=== PATIENT | male | born 2000 | race Caucasian/White ===

== ENCOUNTER 2018-01-08 10:22 | Day surgery (SDC) | payer BC, MEDICAID ==
[2018-01-08] MEDS ORDERED: Sodium Chloride 0.9% 1,000 ML IV ONE (11:17)
[2018-01-08] MEDS ORDERED: Iopamidol 755 Mg/ML 100 ML Bottle IV ONE (11:27)
--- NOTE | 2018-01-08 11:27 | EDM.PDOC ---
ED HPI GENERAL MEDICAL PROBLEM - General Stated Complaint: STOMACH PAIN Time Seen by Provider: 01/08/18 10:22 Source of Information: Reports: Patient History Limitations: Reports: No Limitations - History of Present Illness INITIAL COMMENTS - FREE TEXT/NARRATIVE: 17 y.o.w.m came to he ed 20 hours after he noticed gen abd pain radiating down to his RLQ of his abdomen. Pt got so severe, make to decide to come to the ed. today. Pt had abd. pain a month ago which was different from the pain today. No trauma, no previous abd. surgeries.Last food intake yesterday noon, is not taking any meds. No N/V/D. Pt felt suddenly weak from pain and had a near syncope while walking from room 200 to 201. His BP was 130/67 pulse 80. No fall, no trauma. Pt recovered quickly after NS was given. No other acute medical issues. BP 136/74 pulse 84 Temp 36.8 RR 20 Pulse ox 96. Onset Date: 01/07/18 Onset Time: 14:00 Duration: Hour(s):, Getting Worse, Intermittent Location: Reports: Abdomen Quality: Reports: Ache, Dull, Pressure Severity: Moderate Improves with: Reports: Rest Worsens with: Reports: Movement Context: Reports: Other (distended abdomen, ) Associated Symptoms: Reports: Syncope (while walking from room 200 to 201( near syncope)) Lower Abdomen Pain Score (Numeric/FACES): 5 - Related Data Allergies Allergy/AdvReac Type Severity Reaction Status Date / Time No Known Allergies Allergy Verified 01/08/18 11:26 Home Meds: Home Meds NK [No Known Home Meds] 01/08/18 [History] ED ROS GENERAL - Review of Systems Review Of Systems: See Below Constitutional: Reports: Weakness, Decreased Appetite HEENT: Reports: No Symptoms Respiratory: Reports: No Symptoms Cardiovascular: Reports: No Symptoms Endocrine: Reports: No Symptoms GI/Abdominal: Reports: Abdominal Pain : Reports: No Symptoms Musculoskeletal: Reports: No Symptoms Skin: Reports: No Symptoms Neurological: Reports: No Symptoms Psychiatric: Reports: No Symptoms Hematologic/Lymphatic: Reports: No Symptoms Immunologic: Reports: No Symptoms ED EXAM, GI/ABD - Physical Exam Exam: See Below Exam Limited By: Other (abd. pain) General Appearance: Alert, WD/WN, Moderate Distress, Obese Eyes: Bilateral: Normal Appearance Ears: Normal External Exam Nose: Normal Inspection, Normal Mucosa Throat/Mouth: Normal Lips, Normal Gums, Normal Voice, No Airway Compromise, Other (dry mucosal membrane) Head: Atraumatic, Normocephalic Neck: Normal Inspection, Supple, Non-Tender, Full Range of Motion Respiratory/Chest: No Respiratory Distress, Lungs Clear, Normal Breath Sounds, No Accessory Muscle Use, Chest Non-Tender Cardiovascular: Normal Peripheral Pulses GI/Abdominal Exam: Guarding, Rigid, Rebound, Tender, Abnormal Bowel Sounds (Male) Exam: No Hernia Rectal (Males) Exam: Deferred Back Exam: Normal Inspection, Full Range of Motion Extremities: Normal Inspection, Normal Range of Motion, Non-Tender, No Pedal Edema, Normal Capillary Refill Neurological: Alert, Oriented, CN II-XII Intact, Normal Cognition, Normal Gait, Normal Reflexes, No Motor/Sensory Deficits Psychiatric: Normal Affect, Normal Mood Skin Exam: Warm, Dry, Pallor (after the near syncopy, pt recoved quickly after the NS was given wide open. ) Lymphatic: No Adenopathy EKG INTERPRETATION EKG Date: 01/08/18 Time: 11:35 Rhythm: NSR Rate (Beats/Min): 81 Coulter: Normal P-Wave: Present QRS: Normal ST-T: Normal QT: Normal Comparison: NA - No Prior EKG Course - Vital Signs Text/Narrative:: 17 y.o.w.m came to he ed 20 hours after he noticed gen abd pain radiating down to his RLQ of his abdomen. Pt got so severe, make to decide to come to the ed. today. Pt had abd. pain a month ago which was different from the pain today. No trauma, no previous abd. surgeries.Last food intake yesterday noon, is not taking any meds. No N/V/D. Pt felt suddenly weak from pain and had a near syncope while walking from room 200 to 201. His BP was 130/67 pulse 80. No fall, no trauma. Pt recovered quickly after NS was given. No other acute medical issues. BP 136/74 pulse 84 Temp 36.8 RR 20 Pulse ox 96. PE: 17 y.o. obese w m with acute abd pain and near syncope due to pain ( vasovagal) Imaging: CT abd/pelvis: Early acute appy as per RAD Labs: WBC 16.1 Neutrophils 84% BMP Nl EKG: NSR Impression: early acute appendicitis, abd pain, obesity, S/P near syncope ( vasovagal) Tx: Zosyn, NS. 1.30 pm Consultation: Dr. Bauman, Surgeon: Heidi galloway planned for 4.30 pm today Plan: Appendectomy, Pt and mom were informed about the Tx plan. Last Recorded V/S: Last Vital Signs Temp 36.6 C 01/09/18 04:30 Pulse 66 01/09/18 08:20 Resp 18 01/09/18 08:20 BP 134/68 01/09/18 08:20 Pulse Ox 96 01/09/18 08:20 - Orders/Labs/Meds Orders: Active Orders 24 hr Category Date Time Status Patient Status [ADT] Routine ADT 01/08/18 13:36 Active IS (RT) [RT Incentive Spirometry] [RC] Q2HWA Care 01/08/18 19:09 Active Ready for Discharge [RC] PER UNIT ROUTINE Care 01/09/18 08:54 Active Clear Liquid Diet [DIET] Diet 01/08/18 Dinner Ordered Acetaminophen/HYDROcodone [Sutherlin 325-5 MG] Med 01/08/18 19:09 Active 2 tab PO Q4H PRN Ketorolac [Toradol] Med 01/08/18 17:30 Active 30 mg IVPUSH Q6H Lactated Ringers [Ringers, Lactated] 1,000 ml Med 01/08/18 13:45 Active IV ASDIRECTED Morphine Med 01/08/18 19:09 Active 2 mg IVPUSH Q3H PRN Peripheral IV Insertion Adult [OM.PC] Routine Oth 01/08/18 13:36 Ordered SCD [Sequential Compression Device] [OM.PC] Routine Oth 01/08/18 13:37 Ordered Resuscitation Status Routine Resus Stat 01/08/18 13:36 Ordered EKG 12 Lead [EK] Routine Ther 01/08/18 11:22 Stop Req Medication Orders Hydrocodone Bitart/Acetaminophen ([place]lin 325-5 Mg) 2 tab PO Q4H PRN PRN Reason: Pain Lactated Ringer's (Ringers, Lactated) 1,000 mls @ 125 mls/hr IV ASDIRECTED RAMÍREZ Last Admin: 01/09/18 03:27 Dose: 125 mls/hr Infusion: 01/09/18 03:22 Dose: 125 mls/hr Admin: 01/08/18 19:22 Dose: 125 mls/hr Ketorolac Tromethamine (Toradol) 30 mg IVPUSH Q6H RAMÍREZ Stop: 01/13/18 17:23 Last Admin: 01/09/18 06:15 Dose: 30 mg Admin: 01/09/18 00:24 Dose: 30 mg Admin: 01/08/18 18:29 Dose: 30 mg Morphine Sulfate (Morphine) 2 mg IVPUSH Q3H PRN PRN Reason: Pain Labs: Laboratory Tests 01/08/18 01/08/18 01/08/18 Range/Units 11:27 11:27 11:27 WBC 15.6 H (4.5-12.0) X10-3/uL RBC 5.44 (4.30-5.75) x10(6)uL Hgb 15.2 (11.5-15.5) g/dL Hct 45.3 (30.0-51.3) % MCV 83.3 (80-96) fL MCH 27.9 (27.7-33.6) pg MCHC 33.5 (32.2-35.4) g/dL RDW 12.9 (11.5-15.5) % Plt Count 278 (125-369) X10(3)uL MPV 8.2 (7.4-10.4) fL Neut % (Auto) (46-82) % Lymph % (Auto) (13-37) % [place] % (Auto) (4-12) % Eos % (Auto) (1.0-5.0) % Baso % (Auto) (0-2) % Neut # (Auto) (1.6-8.3) # Lymph # (Auto) (0.6-5.0) # [place] # (Auto) (0.0-1.3) # Eos # (Auto) (0.0-0.8) # Baso # (Auto) (0.0-0.2) # Add Manual Diff Yes Neutrophils % (Manual) 83 H (46-82) % Lymphocytes % (Manual) 9 L (13-37) % Monocytes % (Manual) 7 (4-12) % Eosinophils % (Manual) 1 (0-5) % PT 10.1 (8.7-11.1) INR 1.00 (0.89-1.13) Sodium 140 (135-145) mmol/L Potassium 3.9 (3.5-5.3) mmol/L Chloride 102 (100-110) mmol/L Carbon Dioxide 28 (21-32) mmol/L BUN 8 (7-18) mg/dL Creatinine 0.8 (0.70-1.30) mg/dL Est Cr Clr Drug Dosing TNP Estimated GFR (MDRD) > 60 (>60) BUN/Creatinine Ratio 10.0 (9-20) Glucose 115 (80-116) mg/dL Calcium 8.9 (8.2-10.1) mg/dL Total Bilirubin 0.8 (0.1-1.2) mg/dL Direct Bilirubin 0.14 (0.10-0.20) mg/dL AST 18 (5-25) IU/L ALT 44 H (12-36) U/L Alkaline Phosphatase 157 H (56-112) IU/L Total Protein 7.6 (6.0-8.0) g/dL Albumin 4.0 (3.2-4.5) g/dL Amylase 44 (25-115) U/L Urine Color (YELLOW) Urine Appearance (CLEAR) Urine pH (5.0-6.5) Ur Specific [place] (1.010-1.025) Urine Protein (NEGATIVE) mg/dL Urine Glucose (UA) (NEGATIVE) mg/dL Urine Ketones (NEGATIVE) mg/dL Urine Occult Blood (NEGATIVE) Urine Nitrite (NEGATIVE) Urine Bilirubin (NEGATIVE) Urine Urobilinogen (NEGATIVE) mg/dL Ur Leukocyte Esterase (NEGATIVE) Urine WBC (0) Ur Squamous Epith Cells (NS,R,O) Urine Bacteria (NS) Urine Opiates Screen (NEGATIVE) Ur Oxycodone Screen (NEGATIVE) Ur Propoxyphene Screen (NEGATIVE) Ur Barbituates Screen (NEGATIVE) Ur Tricyclics Screen (NEGATIVE) Ur Phencyclidine Scrn (NEGATIVE) Ur Amphetamine Screen (NEGATIVE) Urine MDMA Screen (NEGATIVE) U Benzodiazepines Scrn (NEGATIVE) U Cocaine Metab Screen (NEGATIVE) U Marijuana (THC) Screen (NEGATIVE) 01/08/18 01/08/18 01/09/18 Range/Units 12:05 12:05 06:40 WBC 11.0 (4.5-12.0) X10-3/uL RBC 4.62 (4.30-5.75) x10(6)uL Hgb 13.0 (11.5-15.5) g/dL Hct 38.4 (30.0-51.3) % MCV 83.3 (80-96) fL MCH 28.1 (27.7-33.6) pg MCHC 33.7 (32.2-35.4) g/dL RDW 12.6 (11.5-15.5) % Plt Count 241 (125-369) X10(3)uL MPV 8.0 (7.4-10.4) fL Neut % (Auto) 66.0 (46-82) % Lymph % (Auto) 22.6 (13-37) % [place] % (Auto) 9.4 (4-12) % Eos % (Auto) 2 (1.0-5.0) % Baso % (Auto) 1 (0-2) % Neut # (Auto) 7.2 (1.6-8.3) # Lymph # (Auto) 2.5 (0.6-5.0) # [place] # (Auto) 1.0 (0.0-1.3) # Eos # (Auto) 0.2 (0.0-0.8) # Baso # (Auto) 0.1 (0.0-0.2) # Add Manual Diff Neutrophils % (Manual) (46-82) % Lymphocytes % (Manual) (13-37) % Monocytes % (Manual) (4-12) % Eosinophils % (Manual) (0-5) % PT (8.7-11.1) INR (0.89-1.13) Sodium (135-145) mmol/L Potassium (3.5-5.3) mmol/L Chloride (100-110) mmol/L Carbon Dioxide (21-32) mmol/L BUN (7-18) mg/dL Creatinine (0.70-1.30) mg/dL Est Cr Clr Drug Dosing Estimated GFR (MDRD) (>60) BUN/Creatinine Ratio (9-20) Glucose (80-116) mg/dL Calcium (8.2-10.1) mg/dL Total Bilirubin (0.1-1.2) mg/dL Direct Bilirubin (0.10-0.20) mg/dL AST (5-25) IU/L ALT (12-36) U/L Alkaline Phosphatase (56-112) IU/L Total Protein (6.0-8.0) g/dL Albumin (3.2-4.5) g/dL Amylase (25-115) U/L Urine Color Yellow (YELLOW) Urine Appearance Clear (CLEAR) Urine pH 7.0 H (5.0-6.5) Ur Specific [place] 1.010 (1.010-1.025) Urine Protein Negative (NEGATIVE) mg/dL Urine Glucose (UA) Normal (NEGATIVE) mg/dL Urine Ketones Negative (NEGATIVE) mg/dL Urine Occult Blood Negative (NEGATIVE) Urine Nitrite Negative (NEGATIVE) Urine Bilirubin Negative (NEGATIVE) Urine Urobilinogen Normal (NEGATIVE) mg/dL Ur Leukocyte Esterase Negative (NEGATIVE) Urine WBC 0-5 (0) Ur Squamous Epith Cells Few H (NS,R,O) Urine Bacteria Few H (NS) Urine Opiates Screen Negative (NEGATIVE) Ur Oxycodone Screen Negative (NEGATIVE) Ur Propoxyphene Screen Negative (NEGATIVE) Ur Barbituates Screen Negative (NEGATIVE) Ur Tricyclics Screen Negative (NEGATIVE) Ur Phencyclidine Scrn Negative (NEGATIVE) Ur Amphetamine Screen Negative (NEGATIVE) Urine MDMA Screen Negative (NEGATIVE) U Benzodiazepines Scrn Negative (NEGATIVE) U Cocaine Metab Screen Negative (NEGATIVE) U Marijuana (THC) Screen Negative (NEGATIVE) Meds: Medications Generic Name Dose Route Start Last Admin Trade Name Freq PRN Reason Stop Dose Admin Hydrocodone Bitart/Acetaminophen 2 tab 01/08/18 19:09 [place]utherlin 325-5 Mg PO Q4H PRN Pain Lactated Ringer's 1,000 mls @ 125 mls/hr 01/08/18 13:45 01/09/18 03:27 Ringers, Lactated IV 125 mls/hr ASDIRECTED RAMÍREZ Administration Ketorolac Tromethamine 30 mg 01/08/18 17:30 01/09/18 06:15 Toradol IVPUSH 01/13/18 17:23 30 mg Q6H RAMÍREZ Administration Morphine Sulfate 2 mg 01/08/18 19:09 Morphine IVPUSH Q3H PRN Pain Discontinued Medications Generic Name Dose Route Start Last Admin Trade Name Freq PRN Reason Stop Dose Admin Bupivacaine HCl 6 ml 01/08/18 16:53 01/08/18 16:53 Marcaine 0.5% INJECT 01/08/18 16:54 6 ml .STK-MED ONE Administration Diatrizoate Meglum/Diatrizoate Sod 30 ml 01/08/18 11:30 01/08/18 13:13 Gastrografin 37% PO 30 ml . DIRECTED RAMÍREZ Administration Sodium Chloride 1,000 mls @ 999 mls/hr 01/08/18 11:17 01/08/18 11:30 Normal Saline IV 01/08/18 12:17 999 mls/hr .BOLUS ONE Administration Piperacillin Sod/Tazobactam 50 mls @ 100 mls/hr 01/08/18 12:30 01/08/18 18:44 Sod 3.375 gm/ Sodium Chloride IV 100 mls/hr Q6H RAMÍREZ Administration Sodium Chloride 1,000 mls @ 125 mls/hr 01/08/18 12:30 01/08/18 12:30 Normal Saline IV 01/08/18 16:25 125 mls/hr ASDIRECTED RAMÍREZ Administration Iopamidol 100 ml 01/08/18 11:27 01/08/18 13:13 Isovue-370 (76%) IV 01/08/18 11:28 93 ml . DIRECTED ONE Administration Lidocaine/Epinephrine 6 ml 01/08/18 16:53 01/08/18 16:53 Xylocaine 1% With Epinephrine 1:100,000 INJECT 01/08/18 16:54 6 ml .STK-MED ONE Administration Sodium Chloride 10 ml 01/08/18 13:36 Saline Flush FLUSH ASDIRECTED PRN Keep Vein Open Departure - Departure Time of Disposition: 16:00 Disposition: Admitted As Inpatient 64 Condition: Fair Clinical Impression: Acute appendicitis Qualifiers: Acute appendicitis type: with localized peritonitis Qualified Code(s): K35.3 - Acute appendicitis with localized peritonitis - Discharge Information - My Orders Last 24 Hours: My Active Orders 01/08/18 11:22 EKG 12 Lead [EK] Routine - Assessment/Plan Last 24 Hours: My Active Orders 01/08/18 11:22 EKG 12 Lead [EK] Routine
[2018-01-08] MEDS ORDERED: Diatrizoate Meglumine/Diatrizoate Sodium 37% 30 ML Bottle PO SCH (11:30)
[2018-01-08] MEDS ORDERED: Sodium Chloride 0.9% 1,000 ML IV SCH (12:30)
[2018-01-08] MEDS: Piperacillin/Tazobactam 3.375 GM in Sodium Chloride 0.9% 50 ML IV SCH ×2 (12:45→18:44)
[2018-01-08] MEDS ORDERED: Sodium Chloride 0.9% 10 ML Syringe FLUSH PRN (13:36)
--- NOTE | 2018-01-08 14:46 | CT ---
INDICATION: Right lower quadrant and periumbilical pain, distended. CT ABDOMEN AND PELVIS WITH CONTRAST: Spiral 2.5-mm axial sections were obtained through the abdomen and pelvis with oral and IV contrast (93 mL Isovue- 370 at 2.3 mL per second), with sagittal and coronal reconstructions, 2017 - no comparisons. Total Exam DLP = 1316.45 mGy-cm. The lower lung warner and pleural spaces visualized appeared normal. The heart is not enlarged. There is a mild degree of appendiceal prominence with an appendicolith and some minimal periappendiceal fat stranding and increased fat density suggesting very minimal localized peritonitis with appendicitis. A loop of distal ileum has a thickened wall of questionable significance, but could be related to a process such as Crohn's disease. No evidence of an obstructive process of the bowel or free air or herniation was identified. The urinary bladder was unremarkable. Kidneys, adrenal glands, pancreas, spleen , liver, and gallbladder were unremarkable. IMPRESSION: 1. Findings are compatible with a mild or early appendicitis, with limited peritonitis adjacent to the appendix. An appendicolith is present. 2. Thickened wall of a loop of distal ileum of questionable significance could be related to Crohn's disease. 3. CT abdomen and pelvis with IV and oral contrast otherwise unremarkable. Report was called to Dr. Martinez at 1330 hours, 01/08/2018. [facility]
[2018-01-08] MEDS ORDERED: Succinylcholine 200 MG/10 ML MDV IV ONE (16:35)
[2018-01-08] MEDS ORDERED: Ondansetron 4 MG/2 ML SDV IVPUSH ONE (16:35)
[2018-01-08] MEDS ORDERED: fentaNYL 100 MCG/2 ML SDV IV ONE (16:35)
[2018-01-08] MEDS ORDERED: Midazolam 1 MG/ML 2 ML SDV IV ONE (16:35)
[2018-01-08] MEDS ORDERED: Sugammadex Sodium 200 MG/2 ML VIAL IV ONE (16:35)
[2018-01-08] MEDS ORDERED: Ketorolac 30 MG/ML SDV IVPUSH ONE (16:35)
[2018-01-08] MEDS ORDERED: Rocuronium 100 MG/10 ML MDV IV ONE (16:35)
[2018-01-08] MEDS ORDERED: Propofol 200 MG/20 ML SDV IV ONE (16:35)
[2018-01-08] MEDS ORDERED: Lactated Ringers 1,000 ML IV ONE (16:35)
[2018-01-08] MEDS ORDERED: Lidocaine 1% with EPINEPHrine 1:100,000 20 ML MDV INJECT ONE (16:53)
[2018-01-08] MEDS ORDERED: Bupivacaine 0.5% 30 ML SDV INJECT ONE (16:53)
--- NOTE | 2018-01-08 17:20 | PCM.OPNOTE ---
- General Post-Op/Procedure Note Date of Surgery/Procedure: 01/08/18 Operative Procedure(s): lap appendectomy Findings: inflamed appendix Pre Op Diagnosis: acute appendictis Post-Op Diagnosis: Same Anesthesia Technique: MAC Primary Surgeon: Nikolas Bauman Anesthesia Provider: Elle Tobin Pathology: appendix EBL in mLs: 1 Complications: None Condition: Good Free Text/Narrative:: Intake & Output 01/08/18 01/08/18 01/08/18 06:59 14:59 22:59 Intake Total 480 Balance 480 see dictation
[2018-01-08] MEDS: Ketorolac 30 MG/ML SDV IVPUSH SCH (18:29)
--- NOTE | 2018-01-08 19:02 | PREOP ---
ADMISSION DATE: 01/08/2018 CHIEF COMPLAINT: Abdominal pain. HISTORY OF PRESENT ILLNESS: This is a 17-year-old white male, who apparently developed some abdominal pain yesterday in his periumbilical and subsequently located to the right lower quadrant. It is exacerbated by motion and bending over. He has plus-minus on the anorexia. Denies any fever. Subsequent workup demonstrated leukocytosis as well as evidence of appendicitis on CT scan. 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 Does not smoke. Does not drink. MEDICATIONS: He is currently on no medication. ALLERGIES: Denies any known drug allergies. FAMILY HISTORY: Significant for heart disease. PAST MEDICAL HISTORY: Negative. PAST SURGICAL HISTORY: Negative. REVIEW OF SYSTEMS: GENERAL: Negative. EYES, EARS, NOSE, AND THROAT: Negative. PULMONARY: Negative. CARDIAC: Negative. ABDOMEN: See HPI. : Denies any issues. MUSCULOSKELETAL: Denies any musculoskeletal issues. NEUROLOGIC: Denies any neurologic issues. SKIN: Denies any skin issues. PHYSICAL EXAMINATION: GENERAL: This is a well-developed and well-nourished white male, appearing in no acute distress. HEENT: Grossly within normal limits. LUNGS: Clear to auscultation. HEART: Had a regular rate and rhythm. ABDOMEN: Soft. He has some tenderness in the right lower quadrant and some mild rebound. LABORATORY DATA: Reviewed and demonstrates leukocytosis. ASSESSMENT: Acute appendicitis. PLAN: Laparoscopic appendectomy. Procedure and risks explained to the patient to include bleeding, infection, perforation, removal of a normal appendix as well as converting to open. The patient expresses understanding and he asked us to proceed. /[id number] /MODL
[2018-01-08] MEDS ORDERED: Acetaminophen/HYDROcodone 325-5 MG Tab PO PRN (19:09)
[2018-01-08] MEDS ORDERED: Morphine 2 MG/ML Syringe IVPUSH PRN (19:09)
[2018-01-08] MEDS: Lactated Ringers 1,000 ML IV SCH (19:22)
--- NOTE | 2018-01-09 00:20 | OR ---
DATE OF OPERATION: 01/08/2018 SURGEON: Nikolas Bauman MD PROCEDURE PERFORMED: Laparoscopic appendectomy. PREOPERATIVE DIAGNOSIS: Acute appendicitis. POSTOPERATIVE DIAGNOSIS: Acute appendicitis. INDICATIONS FOR PROCEDURE: This is a 17-year-old white male who presented to the emergency department with 24-hour history of a periumbilical abdominal pain, which is located to the right lower quadrant. Subsequent workup in the emergency department demonstrated acute appendicitis. He was offered and accepted a lap appendectomy. DESCRIPTION OF PROCEDURE: After an excellent general anesthetic was administered, the patient was prepped and draped in the usual sterile manner. A 1:1 mixture of 1% lidocaine with epinephrine and 0.5% bupivacaine was used to infiltrate the area just below the umbilicus. A small vertical midline incision was then made. Blunt dissection was carried out exposing the midline fascia. Two stay sutures of 0 Vicryl were placed on either side of the fascia, which was then elevated, incised, and the abdominal cavity was entered. A 10.5 mm Gregoria trocar was inserted into the patient's abdomen. The abdomen was then insufflated to 15 mmHg using carbon dioxide. The patient was placed in Trendelenburg position with an airplane to the left. Two 5 mm ports were placed, one in the right lower quadrant and one in the midline below the umbilical port, again by injecting with more local and then making stab incisions and inserting the trocars. The appendix was grasped. Some omental adhesions were easily reduced. A rent was then made. The mesoappendix was divided using 2 firings of an Endo-PARI 2.0 mm load. Two loads were used because of slow-to-not successfully transect the appendiceal stump. The mesoappendix was divided with a 2.5 mm load. Specimen was passed into a specimen bag, delivered out through the periumbilical port. The pneumoperitoneum was released. The periumbilical incision site was closed with a [id number] 0 Vicryl and the 2 stay sutures were placed on each side. The skin was closed using wolfgang. Needle, sponge, and instrument counts were reported as correct. The patient was taken to recovery room in good condition. A grand total of 8 mL of our local was used. /[id number] /ALLY
[2018-01-09] MEDS: Ketorolac 30 MG/ML SDV IVPUSH SCH ×2 (00:24→06:15)
[2018-01-09] MEDS: Lactated Ringers 1,000 ML IV SCH (03:27)
--- NOTE | 2018-01-09 08:52 | PCM.SURGPN ---
- General Info Date of Service: 01/09/18 POD#: 1 Functional Status: Reports: Pain Controlled, Tolerating Diet, Ambulating, Urinating - Review of Systems Pulmonary: Reports: No Symptoms Cardiovascular: Reports: No Symptoms Gastrointestinal: Reports: No Symptoms - Patient Data Vitals - Most Recent: Last Vital Signs Temp 36.6 C 01/09/18 04:30 Pulse 77 01/09/18 04:30 Resp 18 01/09/18 04:30 BP 103/57 L 01/09/18 04:30 Pulse Ox 95 01/09/18 04:30 Weight - Most Recent: 118.433 kg I&O - Last 24 Hours: Intake & Output 01/08/18 01/09/18 01/09/18 22:59 06:59 14:59 Intake Total 887 Output Total 250 Balance 637 Lab Results Last 24 Hrs: Laboratory Results - last 24 hr 01/08/18 01/08/18 01/08/18 Range/Units 11:27 11:27 11:27 WBC 15.6 H (4.5-12.0) X10-3/uL RBC 5.44 (4.30-5.75) x10(6)uL Hgb 15.2 (11.5-15.5) g/dL Hct 45.3 (30.0-51.3) % MCV 83.3 (80-96) fL MCH 27.9 (27.7-33.6) pg MCHC 33.5 (32.2-35.4) g/dL RDW 12.9 (11.5-15.5) % Plt Count 278 (125-369) X10(3)uL MPV 8.2 (7.4-10.4) fL Neut % (Auto) (46-82) % Lymph % (Auto) (13-37) % [place] % (Auto) (4-12) % Eos % (Auto) (1.0-5.0) % Baso % (Auto) (0-2) % Neut # (Auto) (1.6-8.3) # Lymph # (Auto) (0.6-5.0) # [place] # (Auto) (0.0-1.3) # Eos # (Auto) (0.0-0.8) # Baso # (Auto) (0.0-0.2) # Add Manual Diff Yes Neutrophils % (Manual) 83 H (46-82) % Lymphocytes % (Manual) 9 L (13-37) % Monocytes % (Manual) 7 (4-12) % Eosinophils % (Manual) 1 (0-5) % PT 10.1 (8.7-11.1) INR 1.00 (0.89-1.13) Sodium 140 (135-145) mmol/L Potassium 3.9 (3.5-5.3) mmol/L Chloride 102 (100-110) mmol/L Carbon Dioxide 28 (21-32) mmol/L BUN 8 (7-18) mg/dL Creatinine 0.8 (0.70-1.30) mg/dL Est Cr Clr Drug Dosing TNP Estimated GFR (MDRD) > 60 (>60) BUN/Creatinine Ratio 10.0 (9-20) Glucose 115 (80-116) mg/dL Calcium 8.9 (8.2-10.1) mg/dL Total Bilirubin 0.8 (0.1-1.2) mg/dL Direct Bilirubin 0.14 (0.10-0.20) mg/dL AST 18 (5-25) IU/L ALT 44 H (12-36) U/L Alkaline Phosphatase 157 H (56-112) IU/L Total Protein 7.6 (6.0-8.0) g/dL Albumin 4.0 (3.2-4.5) g/dL Amylase 44 (25-115) U/L Urine Color (YELLOW) Urine Appearance (CLEAR) Urine pH (5.0-6.5) Ur Specific [place] (1.010-1.025) Urine Protein (NEGATIVE) mg/dL Urine Glucose (UA) (NEGATIVE) mg/dL Urine Ketones (NEGATIVE) mg/dL Urine Occult Blood (NEGATIVE) Urine Nitrite (NEGATIVE) Urine Bilirubin (NEGATIVE) Urine Urobilinogen (NEGATIVE) mg/dL Ur Leukocyte Esterase (NEGATIVE) Urine WBC (0) Ur Squamous Epith Cells (NS,R,O) Urine Bacteria (NS) Urine Opiates Screen (NEGATIVE) Ur Oxycodone Screen (NEGATIVE) Ur Propoxyphene Screen (NEGATIVE) Ur Barbituates Screen (NEGATIVE) Ur Tricyclics Screen (NEGATIVE) Ur Phencyclidine Scrn (NEGATIVE) Ur Amphetamine Screen (NEGATIVE) Urine MDMA Screen (NEGATIVE) U Benzodiazepines Scrn (NEGATIVE) U Cocaine Metab Screen (NEGATIVE) U Marijuana (THC) Screen (NEGATIVE) 01/08/18 01/08/18 01/09/18 Range/Units 12:05 12:05 06:40 WBC 11.0 (4.5-12.0) X10-3/uL RBC 4.62 (4.30-5.75) x10(6)uL Hgb 13.0 (11.5-15.5) g/dL Hct 38.4 (30.0-51.3) % MCV 83.3 (80-96) fL MCH 28.1 (27.7-33.6) pg MCHC 33.7 (32.2-35.4) g/dL RDW 12.6 (11.5-15.5) % Plt Count 241 (125-369) X10(3)uL MPV 8.0 (7.4-10.4) fL Neut % (Auto) 66.0 (46-82) % Lymph % (Auto) 22.6 (13-37) % [place] % (Auto) 9.4 (4-12) % Eos % (Auto) 2 (1.0-5.0) % Baso % (Auto) 1 (0-2) % Neut # (Auto) 7.2 (1.6-8.3) # Lymph # (Auto) 2.5 (0.6-5.0) # [place] # (Auto) 1.0 (0.0-1.3) # Eos # (Auto) 0.2 (0.0-0.8) # Baso # (Auto) 0.1 (0.0-0.2) # Add Manual Diff Neutrophils % (Manual) (46-82) % Lymphocytes % (Manual) (13-37) % Monocytes % (Manual) (4-12) % Eosinophils % (Manual) (0-5) % PT (8.7-11.1) INR (0.89-1.13) Sodium (135-145) mmol/L Potassium (3.5-5.3) mmol/L Chloride (100-110) mmol/L Carbon Dioxide (21-32) mmol/L BUN (7-18) mg/dL Creatinine (0.70-1.30) mg/dL Est Cr Clr Drug Dosing Estimated GFR (MDRD) (>60) BUN/Creatinine Ratio (9-20) Glucose (80-116) mg/dL Calcium (8.2-10.1) mg/dL Total Bilirubin (0.1-1.2) mg/dL Direct Bilirubin (0.10-0.20) mg/dL AST (5-25) IU/L ALT (12-36) U/L Alkaline Phosphatase (56-112) IU/L Total Protein (6.0-8.0) g/dL Albumin (3.2-4.5) g/dL Amylase (25-115) U/L Urine Color Yellow (YELLOW) Urine Appearance Clear (CLEAR) Urine pH 7.0 H (5.0-6.5) Ur Specific [place] 1.010 (1.010-1.025) Urine Protein Negative (NEGATIVE) mg/dL Urine Glucose (UA) Normal (NEGATIVE) mg/dL Urine Ketones Negative (NEGATIVE) mg/dL Urine Occult Blood Negative (NEGATIVE) Urine Nitrite Negative (NEGATIVE) Urine Bilirubin Negative (NEGATIVE) Urine Urobilinogen Normal (NEGATIVE) mg/dL Ur Leukocyte Esterase Negative (NEGATIVE) Urine WBC 0-5 (0) Ur Squamous Epith Cells Few H (NS,R,O) Urine Bacteria Few H (NS) Urine Opiates Screen Negative (NEGATIVE) Ur Oxycodone Screen Negative (NEGATIVE) Ur Propoxyphene Screen Negative (NEGATIVE) Ur Barbituates Screen Negative (NEGATIVE) Ur Tricyclics Screen Negative (NEGATIVE) Ur Phencyclidine Scrn Negative (NEGATIVE) Ur Amphetamine Screen Negative (NEGATIVE) Urine MDMA Screen Negative (NEGATIVE) U Benzodiazepines Scrn Negative (NEGATIVE) U Cocaine Metab Screen Negative (NEGATIVE) U Marijuana (THC) Screen Negative (NEGATIVE) Med Orders - Current: Current Medications Hydrocodone Bitart/Acetaminophen ([place] 325-5 Mg) 2 tab PO Q4H PRN PRN Reason: Pain Lactated Ringer's (Ringers, Lactated) 1,000 mls @ 125 mls/hr IV ASDIRECTED RAMÍREZ Last Admin: 01/09/18 03:27 Dose: 125 mls/hr Ketorolac Tromethamine (Toradol) 30 mg IVPUSH Q6H RAMÍREZ Stop: 01/13/18 17:23 Last Admin: 01/09/18 06:15 Dose: 30 mg Morphine Sulfate (Morphine) 2 mg IVPUSH Q3H PRN PRN Reason: Pain Discontinued Medications Bupivacaine HCl (Marcaine 0.5%) 6 ml INJECT .STK-MED ONE Stop: 01/08/18 16:54 Last Admin: 01/08/18 16:53 Dose: 6 ml Diatrizoate Meglum/Diatrizoate Sod (Gastrografin 37%) 30 ml PO . DIRECTED [facility] Last Admin: 01/08/18 13:13 Dose: 30 ml Sodium Chloride (Normal Saline) 1,000 mls @ 999 mls/hr IV .BOLUS ONE Stop: 01/08/18 12:17 Last Admin: 01/08/18 11:30 Dose: 999 mls/hr Piperacillin Sod/Tazobactam (Sod 3.375 gm/ Sodium Chloride) 50 mls @ 100 mls/ hr IV Q6H [facility] Last Admin: 01/08/18 18:44 Dose: 100 mls/hr Sodium Chloride (Normal Saline) 1,000 mls @ 125 mls/hr IV ASDIRECTED [facility] Stop: 01/08/18 16:25 Last Admin: 01/08/18 12:30 Dose: 125 mls/hr Iopamidol (Isovue-370 (76%)) 100 ml IV . DIRECTED ONE Stop: 01/08/18 11:28 Last Admin: 01/08/18 13:13 Dose: 93 ml Lidocaine/Epinephrine (Xylocaine 1% With Epinephrine 1:100,000) 6 ml INJECT .STK-MED ONE Stop: 01/08/18 16:54 Last Admin: 01/08/18 16:53 Dose: 6 ml Sodium Chloride (Saline Flush) 10 ml FLUSH ASDIRECTED PRN PRN Reason: Keep Vein Open - Exam Wound/Incisions: Dressing Dry and Intact General: Alert, Oriented, Cooperative, No Acute Distress Lungs: Clear to Auscultation, Normal Respiratory Effort Cardiovascular: Regular Rate, Regular Rhythm GI/Abdominal Exam: Normal Bowel Sounds, Soft, Other (mild incisional tenderness ) Skin: Warm, Dry, Intact - Problem List & Annotations (1) Acute appendicitis SNOMED Code(s): 89566667 Code(s): K35.80 - UNSPECIFIED ACUTE APPENDICITIS Status: Resolved Current Visit: Yes Qualifiers: Acute appendicitis type: with localized peritonitis Qualified Code(s): K35.3 - Acute appendicitis with localized peritonitis - Problem List Review Problem List Initiated/Reviewed/Updated: Yes - My Orders Last 24 Hours: Active Orders 24 hr Category Date Time Status Patient Status [ADT] Routine ADT 01/08/18 13:36 Active IS (RT) [RT Incentive Spirometry] [RC] Q2HWA Care 01/08/18 19:09 Active Clear Liquid Diet [DIET] Diet 01/08/18 Dinner Ordered Acetaminophen/HYDROcodone [[place] 325-5 MG] Med 01/08/18 19:09 Active 2 tab PO Q4H PRN Ketorolac [Toradol] Med 01/08/18 17:30 Active 30 mg IVPUSH Q6H Lactated Ringers [Ringers, Lactated] 1,000 ml Med 01/08/18 13:45 Active IV ASDIRECTED Morphine Med 01/08/18 19:09 Active 2 mg IVPUSH Q3H PRN Peripheral IV Insertion Adult [OM.PC] Routine Oth 01/08/18 13:36 Ordered SCD [Sequential Compression Device] [OM.PC] Routine Oth 01/08/18 13:37 Ordered Resuscitation Status Routine Resus Stat 01/08/18 13:36 Ordered EKG 12 Lead [EK] Routine Ther 01/08/18 11:22 Stop Req Medication Orders Hydrocodone Bitart/Acetaminophen ([place] 325-5 Mg) 2 tab PO Q4H PRN PRN Reason: Pain Lactated Ringer's (Ringers, Lactated) 1,000 mls @ 125 mls/hr IV ASDIRECTED RAMÍREZ Last Admin: 01/09/18 03:27 Dose: 125 mls/hr Infusion: 01/09/18 03:22 Dose: 125 mls/hr Admin: 01/08/18 19:22 Dose: 125 mls/hr Ketorolac Tromethamine (Toradol) 30 mg IVPUSH Q6H RAMÍREZ Stop: 01/13/18 17:23 Last Admin: 01/09/18 06:15 Dose: 30 mg Admin: 01/09/18 00:24 Dose: 30 mg Admin: 01/08/18 18:29 Dose: 30 mg Morphine Sulfate (Morphine) 2 mg IVPUSH Q3H PRN PRN Reason: Pain - Assessment Assessment (Free Text/Narrative):: ready of discharge - Plan Plan (Free Text/Narrative):: D/C to home
== END 2018-01-09 10:15 | disposition home or self-care (01) ==
LOC: FB.ED 10:22 → FB.SDS 13:42 → FB.MS 14:05 → FB.SDS 01-09 10:15
PROVIDERS: ATTEND Surgery
DX: K35.80 Unspecified acute appendicitis (principal)
CPT/HCPCS: 36415; 44970; 74177; 80048; 80076; 80305; 81001; 82150; 85025; 85610; 88304; 93005; 96361; 96365; 99285; C9399; J0330; J1885; J2250; J2405; J2543; J2704; J3010; J7040; J7050; J7120; Q9963; Q9967; J7030

== ENCOUNTER 2018-01-17 14:49 | Emergency (ER) | payer BC ==
--- NOTE | 2018-01-17 15:21 | EDM.PDOC ---
ED HPI GENERAL MEDICAL PROBLEM - General Chief Complaint: Skin Complaint Stated Complaint: DRAINAGE FROM STITCH REMOVAL Time Seen by Provider: 01/17/18 15:05 Source of Information: Reports: Patient, Old Records History Limitations: Reports: No Limitations - History of Present Illness INITIAL COMMENTS - FREE TEXT/NARRATIVE: [facility] some drainage from an abdominal wound that was created for his lap appy performed 9 days ago. His surgical wolfgang were removed this am, followed by some awareness later today of some watery drainage. Upon arrival, some minor katherine appearing fluid was seen at the infraumbilical wound. The steristrips are still intact. There is no erythema or tenderness at the wound site. - Related Data Allergies Allergy/AdvReac Type Severity Reaction Status Date / Time No Known Allergies Allergy Verified 01/17/18 15:07 Home Meds: Home Meds Ondansetron [IJD: Ondansetron ODT] 4 mg PO ASDIRECTED PRN 01/17/18 [History] Past Medical History - Past Health History Medical/Surgical History: Denies Medical/Surgical History - Past Surgical History GI Surgical History: Reports: Appendectomy Social & Family History - Family History Family Medical History: Noncontributory - Tobacco Use Smoking Status *Q: Never Smoker - Alcohol Use Days Per Week of Alcohol Use: 1 Number of Drinks Per Day: 2 Total Drinks Per Week: 2 - Recreational Drug Use Recreational Drug Use: No ED ROS GENERAL - Review of Systems Review Of Systems: ROS reveals no pertinent complaints other than HPI. ED EXAM, SKIN/RASH Exam: See Below Exam Limited By: No Limitations General Appearance: Alert, WD/WN, No Apparent Distress, Obese Head: Normocephalic Neck: Normal Inspection, Supple, Non-Tender Respiratory/Chest: Lungs Clear, Normal Breath Sounds, Chest Non-Tender Cardiovascular: Regular Rate, Rhythm, No Murmur GI/Abdominal: Normal Bowel Sounds, Soft, Non-Tender, No Organomegaly, No Distention, No Mass, Other (wound sites from lap appy look fine; minimal xanthrochoromic discharge noted at infraumbilical site; no exudate) (Male) Exam: Deferred Rectal (Males) Exam: Deferred Back Exam: Normal Inspection Extremities: Normal Inspection Neurological: Alert, Oriented, CN II-XII Intact, Normal Cognition, No Motor/ Sensory Deficits Psychiatric: Normal Affect, Normal Mood Skin: Warm, Dry, Normal Color, No Rash, Other (surgical wounds look clean) Course - Vital Signs Text/Narrative:: The surgical wound at the infraumbilical site was cleaned and a dressing was applied. Last Recorded V/S: Last Vital Signs Temp 36.3 C 01/17/18 15:08 Pulse 103 H 01/17/18 15:08 Resp 14 01/17/18 15:08 BP 123/57 L 01/17/18 15:08 Pulse Ox 96 01/17/18 15:08 Departure - Departure Time of Disposition: 15:22 Disposition: Home, Self-Care 01 Condition: Good Clinical Impression: Abdominal wall seroma Qualifiers: Encounter type: initial encounter Qualified Code(s): T88.8XXA - Other specified complications of surgical and medical care, not elsewhere classified, initial encounter; T79.2XXA - Traumatic secondary and recurrent hemorrhage and seroma, initial encounter - Discharge Information Referrals: Nikolas Bauman MD [Primary Care Provider] - - Problem List & Annotations (1) Abdominal wall seroma SNOMED Code(s): 819379753 Code(s): T88.8XXA - OTH COMPLICATIONS OF SURGICAL AND MEDICAL CARE, NEC, INIT ; T79.2XXA - TRAUMATIC SECONDARY AND RECURRENT HEMOR AND SEROMA, INIT Status: Acute Current Visit: Yes Annotation/Comment:: Continue local wound cares, and keep infraumbilical wound covered. Qualifiers: Encounter type: initial encounter Qualified Code(s): T88.8XXA - Other specified complications of surgical and medical care, not elsewhere classified, initial encounter; T79.2XXA - Traumatic secondary and recurrent hemorrhage and seroma, initial encounter - Problem List Review Problem List Initiated/Reviewed/Updated: Yes - Assessment/Plan Plan: Follow up with Surgery if needed.
== END 2018-01-17 15:22 | disposition home or self-care (01) ==
LOC: FB.ED 14:49
DX: K91.872 Postprocedural seroma of a digestive system organ or structure following a digestive system procedure (principal)
CPT/HCPCS: 99283